=== PATIENT | male | born 1960 | race Caucasian/White ===

== ENCOUNTER 2016-12-14 09:41 | Observation (INO) | payer OTHER ==
[~2016-12-14] VITALS: Ht 182.9 cm; Wt 126.4 kg
[2016-12-14] VITALS (8 sets, daily range): BP systolic 123–146; BP diastolic 72–89
[~2016-12-14 09:41] MED LIST: ADULT LOW DOSE81 M1 PO; ADVIL200 MG PO; ALDACTONE25 MG PO; ALPRAZOLAM0.25 M2 PO; AMIODARONE HCL200 MG PO; ASPIR 8181 M1 PO; ASPIRIN81 M2 PO; ATIVAN0.5 MG PO; ATORVASTATIN CA20 MG PO; ATORVASTATIN CA40 MG PO; BENADRYL25 MG PO; BUPROPION HCL150 M2 PO; CORDARONE200 MG PO; COUMADIN1 MG PO; COUMADIN10 MG PO; COUMADIN2 MG PO; COUMADIN5 MG PO; COUMADIN6 MG PO; Cordarone, Pacerone PO; FLOMAX0.4 MG PO; FLONASE16 G1 BOTH NARES; FLOVENT 11120 INHALA IH; FUROSEMIDE; HYDROCHLOROTH12.5 M3 PO; HYDROCHLOROTHIA25 MG PO; IMDUR30 MG PO; K-DUR20 MEQ PO; KLOR-CON M2020 MEQ PO; LANSOPRAZOLE15 MG PO; LASIX20 MG PO; LASIX40 MG PO; LIPITOR20 MG PO; LIPITOR40 MG PO; LIPITOR80 MG PO; LISINOPRIL10 MG PO; LISINOPRIL2.5 MG PO; LITE COAT ASPI325 M1 PO; LOPRESSOR25 MG PO; LOPRESSOR50 MG PO; LOW DOSE ASPIRI81 M1 PO; METOPROLOL TART25 MG PO; METOPROLOL TART50 MG PO; MINOCYCLINE HC100 MG PO; NITROGLYCERIN1 EAC1 TD; NITROSTAT0.4 MG SL; OMEPRAZOLE40 M1 PO; PREVACID30 MG PO; PRILOSEC20 MG PO; PRINIVIL10 MG PO; PRINIVIL20 MG PO; RANEXA500 MG PO; SERTRALINE HCL25 MG PO; SPIRONOLACTONE25 MG PO; ST. JOSEPH ASPI81 MG PO; STOOL SOFTENER100 M1 PO; TAMSULOSIN HCL0.4 MG PO; WARFARIN SODIU7.5 MG PO; WARFARIN SODIUM1 MG PO; WARFARIN SODIUM4 MG PO; WARFARIN SODIUM6 MG PO; WELLBUTRIN PO; WELLBUTRIN SR200 MG PO; XANAX0.25 MG PO; XANAX0.5 MG PO; XANAX1 MG PO; ZYRTEC10 M3 PO
[2016-12-14 10:30] LABS: MCH 31.6 PG (29.0-34.0); MCHC 33.5 G/DL (30.0-36.0); MCV 94.3 FL (86-99); MEAN PLAT.VOLUME 10.3 uM^3 (9.0-12.4); PLATELET COUNT 166 K/uL (156-360); RBC DIS.WIDTH-CV 13.3 % (11.8-14.6); RBC DIS.WIDTH-SD 43.8 % (39-53); RED BLOOD COUNT 4.24 M/uL (4.00-5.50)
[2016-12-14 10:39] LABS: CHLORIDE 107 mEq/L (99-109); SODIUM 141 mEq/L (136-147)
[2016-12-14 10:40] LABS: MAGNESIUM 2.1 mg/dL (1.3-2.7)
[2016-12-14 10:41] LABS: GLUCOSE 101 mg/dL (70-99)
[2016-12-14 10:42] LABS: ANION GAP 7 MEQ/L (2-14)
[2016-12-14 10:45] LABS: GFR ESTIMATE (CALCULATED) > 59 mL/min/
[2016-12-14 10:46] LABS: UREA NITROGEN (BUN) 17 mg/dL (9-23)
[2016-12-14 10:52] LABS: TROP-I INTERPRETATION NEGATIVE; TROPONIN-I < 0.01 ng/mL (0.0-0.30)
[2016-12-14 10:54] LABS: INTER. NORMALIZED RATIO 2.6; PROTHROMBIN TIME 26.8 (9.2-11.2)
[2016-12-14] MEDS ORDERED: LIPITOR80 MG PO (12:50)
[2016-12-14] MEDS ORDERED: XANAX2 MG PO (12:51)
[2016-12-14] MEDS ORDERED: LISINOPRIL5 MG PO (12:52)
[2016-12-14] MEDS ORDERED: EPLERENONE25 MG PO (12:52)
[2016-12-14 18:32] LABS: TROP-I INTERPRETATION NEGATIVE; TROPONIN-I < 0.01 ng/mL (0.0-0.30)
[2016-12-15 00:54] VITALS: BP 128/77
[2016-12-15 01:20] LABS: TROP-I INTERPRETATION NEGATIVE; TROPONIN-I 0.02 ng/mL (0.0-0.30)
[2016-12-15 07:50] VITALS: BP 119/72
[2016-12-15 12:00] VITALS: BP 106/67
== END 2016-12-15 12:35 | disposition home or self-care (01) ==
LOC: EME → EDBD 09:41 → 5WEST 11:06 → EDOF 11:06 → 5WEST 13:08
PROVIDERS: Emergency Medicine; Hospitalist
DX: R07.9 Chest pain, unspecified (principal); I47.2 Ventricular tachycardia; Z95.810 Presence of automatic (implantable) cardiac defibrillator; I25.5 Ischemic cardiomyopathy; I11.0 Hypertensive heart disease with heart failure; I50.22 Chronic systolic (congestive) heart failure; I48.91 Unspecified atrial fibrillation; Z86.718 Personal history of other venous thrombosis and embolism; Z79.01 Long term (current) use of anticoagulants; F41.9 Anxiety disorder, unspecified; Z87.891 Personal history of nicotine dependence; Z88.0 Allergy status to penicillin
CPT/HCPCS: 71010; 80048; 83735; 83880; 84484; 85027; 85610; 93005; 93306; 99281; 99285; G0378

== ENCOUNTER 2016-12-25 21:58 | Observation (INO) | payer OTHER ==
[~2016-12-25] VITALS: Ht 182.9 cm; Wt 124.6 kg
[~2016-12-25 21:58] MED LIST changes: +EPLERENONE25 MG PO; +LISINOPRIL5 MG PO; +XANAX2 MG PO
[2016-12-25 22:30] LABS: HEMATOCRIT 40.1 % (38.0-50.0); MCH 32.1 PG (29.0-34.0); MCHC 34.4 G/DL (30.0-36.0); MCV 93.3 FL (86-99); MEAN PLAT.VOLUME 10.2 uM^3 (9.0-12.4); PLATELET COUNT 163 K/uL (156-360); RBC DIS.WIDTH-CV 13.7 % (11.8-14.6); RBC DIS.WIDTH-SD 45.1 % (39-53); WHITE BLOOD COUNT 5.3 K/uL (4.1-10.2)
[2016-12-25 22:41] LABS: CHLORIDE 108 mEq/L (99-109); POTASSIUM 4.2 mEq/L (3.7-5.4); SODIUM 139 mEq/L (136-147)
[2016-12-25 22:43] LABS: GLUCOSE 91 mg/dL (70-99)
[2016-12-25 22:44] LABS: ANION GAP 9 MEQ/L (2-14)
[2016-12-25 22:46] LABS: GFR ESTIMATE (CALCULATED) > 59 mL/min/
[2016-12-25 22:47] LABS: UREA NITROGEN (BUN) 16 mg/dL (9-23)
[2016-12-25 22:51] LABS: TROP-I INTERPRETATION NEGATIVE; TROPONIN-I < 0.01 ng/mL (0.0-0.30)
[2016-12-26] VITALS (8 sets, daily range): BP systolic 98–120; BP diastolic 59–76
[2016-12-26 01:40] LABS: INTER. NORMALIZED RATIO 2.3; PROTHROMBIN TIME 24.5 (9.2-11.2); PTT 35.8 (25-32)
[2016-12-26 04:50] LABS: MCH 31.8 PG (29.0-34.0); MCHC 33.8 G/DL (30.0-36.0); MCV 94.1 FL (86-99); MEAN PLAT.VOLUME 10.2 uM^3 (9.0-12.4); PLATELET COUNT 169 K/uL (156-360); RBC DIS.WIDTH-CV 13.8 % (11.8-14.6); RBC DIS.WIDTH-SD 44.9 % (39-53); RED BLOOD COUNT 4.25 M/uL (4.00-5.50); WHITE BLOOD COUNT 5.2 K/uL (4.1-10.2)
[2016-12-26 05:01] LABS: CHLORIDE 107 mEq/L (99-109); POTASSIUM 3.8 mEq/L (3.7-5.4); SODIUM 138 mEq/L (136-147)
[2016-12-26 05:03] LABS: GLUCOSE 108 mg/dL (70-99)
[2016-12-26 05:05] LABS: ANION GAP 6 MEQ/L (2-14); TOTAL BILIRUBIN 1.1 mg/dL (0.0-1.0)
[2016-12-26 05:07] LABS: ALKALINE PHOSPHATASE 55 IU/L (3-129); GFR ESTIMATE (CALCULATED) > 59 mL/min/
[2016-12-26 05:08] LABS: UREA NITROGEN (BUN) 16 mg/dL (9-23)
[2016-12-26 05:14] LABS: TROP-I INTERPRETATION NEGATIVE; TROPONIN-I < 0.01 ng/mL (0.0-0.30)
[2016-12-26 11:49] LABS: TROP-I INTERPRETATION NEGATIVE; TROPONIN-I < 0.01 ng/mL (0.0-0.30)
[2016-12-26 16:50] LABS: INTER. NORMALIZED RATIO 3.1; PROTHROMBIN TIME 32.8 (9.2-11.2)
[2016-12-27 03:45] VITALS: BP 101/58
[2016-12-27 07:01] LABS: EOSINOPHIL (%) 1.7 % (0-5); EOSINOPHIL COUNT 0.1 K/uL (0-0.3); HEMATOCRIT 39.7 % (38.0-50.0); LYMPHOCYTE COUNT 1.6 K/uL (1.0-2.8); MCH 30.5 PG (29.0-34.0); MCHC 32.2 G/DL (30.0-36.0); MCV 94.7 FL (86-99); MEAN PLAT.VOLUME 10.9 uM^3 (9.0-12.4); MONOCYTE (%) 9.4 % (3-12); MONOCYTE COUNT 0.6 K/uL (0-0.8); NEUTROPHIL (%) 61.8 % (45-76); NEUTROPHIL COUNT 3.6 K/uL (1.8-6.4); PLATELET COUNT 162 K/uL (156-360); RBC DIS.WIDTH-SD 48.3 % (39-53); RED BLOOD COUNT 4.19 M/uL (4.00-5.50); WHITE BLOOD COUNT 5.8 K/uL (4.1-10.2)
[2016-12-27 07:09] LABS: INTER. NORMALIZED RATIO 3.7
[2016-12-27 07:27] LABS: ANION GAP 7 MEQ/L (2-14); CHLORIDE 105 MEQ/L (99-109); GFR ESTIMATE (CALCULATED) > 59 mL/min/; GLUCOSE 91 mg/dL (70-99); POTASSIUM 4.1 MEQ/L (3.7-5.4); SAMPLE HEMOLYSIS CHECK 0; SAMPLE ICTERIC CHECK 0; SAMPLE LIPEMIA CHECK 0; SODIUM 137 MEQ/L (136-147); UREA NITROGEN (BUN) 16 mg/dL (9-23)
[2016-12-27 07:50] VITALS: BP 106/70
[2016-12-27] MEDS ORDERED: IMDUR30 MG PO (09:42)
== END 2016-12-27 11:50 | disposition home or self-care (01) ==
LOC: EME → EDBD 21:58 → EME 21:58 → EDOF 12-26 01:14 → 5WEST 12-26 01:14
PROVIDERS: Internal Medicine
DX: R07.89 Other chest pain (principal); I11.0 Hypertensive heart disease with heart failure; I50.22 Chronic systolic (congestive) heart failure; I47.2 Ventricular tachycardia; I25.5 Ischemic cardiomyopathy; E78.5 Hyperlipidemia, unspecified; I25.2 Old myocardial infarction; K21.9 Gastro-esophageal reflux disease without esophagitis; F32.9 Major depressive disorder, single episode, unspecified; F41.9 Anxiety disorder, unspecified; Z95.1 Presence of aortocoronary bypass graft; Z87.891 Personal history of nicotine dependence; Z79.01 Long term (current) use of anticoagulants; E66.9 Obesity, unspecified; Z68.37 Body mass index [BMI] 37.0-37.9, adult
CPT/HCPCS: 71020; 80048; 80053; 84484; 85025; 85027; 85610; 85730; 93005; 99281; 99285; G0378

== ENCOUNTER 2017-02-11 20:10 | Observation (INO) | payer OTHER ==
[~2017-02-11] VITALS: Ht 182.9 cm; Wt 128.2 kg
[2017-02-11 21:17] LABS: HEMATOCRIT 38.9 % (38.0-50.0); MCH 31.1 PG (29.0-34.0); MCHC 32.6 G/DL (30.0-36.0); MCV 95.3 FL (86-99); MEAN PLAT.VOLUME 9.4 uM^3 (9.0-12.4); PLATELET COUNT 170 K/uL (156-360); RBC DIS.WIDTH-CV 13.2 % (11.8-14.6); RBC DIS.WIDTH-SD 45.9 % (39-53); RED BLOOD COUNT 4.08 M/uL (4.00-5.50)
[2017-02-11 21:27] LABS: CHLORIDE 109 mEq/L (99-109); POTASSIUM 4.4 mEq/L (3.7-5.4); SODIUM 139 mEq/L (136-147)
[2017-02-11 21:29] LABS: GLUCOSE 98 mg/dL (70-99)
[2017-02-11 21:30] LABS: ANION GAP 7 MEQ/L (2-14)
[2017-02-11 21:33] LABS: GFR ESTIMATE (CALCULATED) > 59 mL/min/
[2017-02-11 21:34] LABS: UREA NITROGEN (BUN) 20 mg/dL (9-23)
[2017-02-11 21:41] LABS: TROP-I INTERPRETATION NEGATIVE; TROPONIN-I < 0.01 ng/mL (0.0-0.30)
[2017-02-11 22:28] LABS: INTER. NORMALIZED RATIO 2.6
[2017-02-11 22:34] LABS: TOTAL BILIRUBIN 1.2 mg/dL (0.0-1.0)
[2017-02-11 22:35] LABS: ALKALINE PHOSPHATASE 50 IU/L (3-129)
[2017-02-11 22:38] LABS: DIRECT BILIRUBIN 0.4 mg/dL (0.0-0.3)
[2017-02-11] MEDS ORDERED: K-DUR20 MEQ PO (22:41)
[2017-02-11 23:48] VITALS: BP 140/86
[2017-02-12 03:33] VITALS: BP 104/65
[2017-02-12 04:31] LABS: INTER. NORMALIZED RATIO 2.4; PROTHROMBIN TIME 25.6 (9.2-11.2)
[2017-02-12 04:41] LABS: TROP-I INTERPRETATION NEGATIVE; TROPONIN-I < 0.01 ng/mL (0.0-0.30)
[2017-02-12 08:11] VITALS: BP 118/74
[2017-02-12 11:06] LABS: Estimated Average Glucose 114 mg/dL (70-123); HEMOGLOBIN A1c (GLYCOHEMOGLOB) 5.6 % HGB (Below 5.7)
[2017-02-12 11:10] VITALS: BP 130/78
[2017-02-12 11:37] LABS: TROP-I INTERPRETATION NEGATIVE; TROPONIN-I 0.02 ng/mL (0.0-0.30)
[2017-02-12 11:38] LABS: ANION GAP 7 MEQ/L (2-14); CHLORIDE 101 MEQ/L (99-109); GFR ESTIMATE (CALCULATED) > 59 mL/min/; GLUCOSE 108 mg/dL (70-99); HDL CHOLESTEROL 24 MG/DL (Desirable>=40); LDL CHOLESTEROL 71 mg/dL (Desirable<100); NON-HDL CHOLESTEROL 94 mg/dL (Desirable<160); SAMPLE HEMOLYSIS CHECK 0; SAMPLE ICTERIC CHECK 0; SAMPLE LIPEMIA CHECK 0; SODIUM 137 MEQ/L (136-147); TOTAL CHOLESTEROL 118 mg/dL (Desirable<200); TRIGLYCERIDES 113 MG/DL (Normal: <150); UREA NITROGEN (BUN) 18 mg/dL (9-23)
[2017-02-12 15:09] VITALS: BP 111/67
== END 2017-02-12 16:43 | disposition home or self-care (01) ==
LOC: EME → EDBD 20:10 → EDOF 22:01 → 5WEST 22:01
PROVIDERS: Emergency Medicine; Physician Assistant Medical
DX: R07.2 Precordial pain (principal); I11.0 Hypertensive heart disease with heart failure; I50.23 Acute on chronic systolic (congestive) heart failure; I25.2 Old myocardial infarction; I25.10 Atherosclerotic heart disease of native coronary artery without angina pectoris; Z95.810 Presence of automatic (implantable) cardiac defibrillator; I25.5 Ischemic cardiomyopathy; E78.5 Hyperlipidemia, unspecified; E66.9 Obesity, unspecified; F32.9 Major depressive disorder, single episode, unspecified; I47.2 Ventricular tachycardia
CPT/HCPCS: 71020; 80048; 80061; 80076; 83036; 83735; 83880; 84484; 85027; 85610; 93005; 99281; 99285; G0378; J1940; J2270; J2405

== ENCOUNTER 2017-03-16 21:22 | Observation (INO) | payer OTHER ==
[~2017-03-16] VITALS: Ht 182.9 cm; Wt 126.3 kg
[2017-03-16 22:01] LABS: EOSINOPHIL (%) 3.5 % (0-5); EOSINOPHIL COUNT 0.2 K/uL (0-0.3); HEMATOCRIT 39.3 % (38.0-50.0); IMMATURE GRANULOCYTE (%) 0.3 % (0.0-0.7); INSTRUMENT ABS NEUTROPHIL CT 3.3 K/uL; MCH 31.1 PG (29.0-34.0); MCHC 33.1 G/DL (30.0-36.0); MEAN PLAT.VOLUME 10.4 uM^3 (9.0-12.4); MONOCYTE (%) 9.8 % (3-12); MONOCYTE COUNT 0.6 K/uL (0-0.8); NEUTROPHIL (%) 53.2 % (45-76); NEUTROPHIL COUNT 3.3 K/uL (1.8-6.4); PLATELET COUNT 165 K/uL (156-360); RBC DIS.WIDTH-CV 13.2 % (11.8-14.6); RBC DIS.WIDTH-SD 45.5 % (39-53); RED BLOOD COUNT 4.18 M/uL (4.00-5.50); WHITE BLOOD COUNT 6.2 K/uL (4.1-10.2)
[2017-03-16 22:17] LABS: CHLORIDE 107 mEq/L (99-109); POTASSIUM 3.7 mEq/L (3.7-5.4); SODIUM 139 mEq/L (136-147)
[2017-03-16 22:19] LABS: GLUCOSE 98 mg/dL (70-99)
[2017-03-16 22:20] LABS: INTER. NORMALIZED RATIO 2.9; PROTHROMBIN TIME 30.1 (9.2-11.2); PTT 38.7 (25-32)
[2017-03-16 22:21] LABS: ANION GAP 9 MEQ/L (2-14)
[2017-03-16 22:23] LABS: GFR ESTIMATE (CALCULATED) > 59 mL/min/
[2017-03-16 22:24] LABS: TROP-I INTERPRETATION NEGATIVE; TROPONIN-I < 0.01 ng/mL (0.0-0.30)
[2017-03-16 22:24] LABS: UREA NITROGEN (BUN) 20 mg/dL (9-23)
[2017-03-17 02:17] VITALS: BP 127/76
[2017-03-17 04:00] VITALS: BP 116/68
[2017-03-17 05:40] LABS: TROP-I INTERPRETATION NEGATIVE; TROPONIN-I < 0.01 ng/mL (0.0-0.30)
[2017-03-17 05:44] LABS: INTER. NORMALIZED RATIO 2.9; PROTHROMBIN TIME 30.5 (9.2-11.2)
[2017-03-17 08:00] VITALS: BP 112/71
[2017-03-17 10:55] LABS: TROP-I INTERPRETATION NEGATIVE; TROPONIN-I < 0.01 ng/mL (0.0-0.30)
[2017-03-17 11:16] VITALS: BP 127/78
== END 2017-03-17 14:11 | disposition home or self-care (01) ==
LOC: EME → EDBD 21:22 → EME 21:22 → EDOF 03-17 00:27 → 5WEST 03-17 01:57
PROVIDERS: Emergency Medicine; Hospitalist; Physician Assistant Medical
DX: R07.89 Other chest pain (principal); I25.5 Ischemic cardiomyopathy; I47.1 Supraventricular tachycardia; I47.2 Ventricular tachycardia; I51.3 Intracardiac thrombosis, not elsewhere classified; I11.0 Hypertensive heart disease with heart failure; I50.22 Chronic systolic (congestive) heart failure; I25.10 Atherosclerotic heart disease of native coronary artery without angina pectoris; I25.2 Old myocardial infarction; E78.5 Hyperlipidemia, unspecified; K21.9 Gastro-esophageal reflux disease without esophagitis; E66.9 Obesity, unspecified; Z68.37 Body mass index [BMI] 37.0-37.9, adult; Z95.810 Presence of automatic (implantable) cardiac defibrillator; Z79.01 Long term (current) use of anticoagulants; Z87.891 Personal history of nicotine dependence; Z95.1 Presence of aortocoronary bypass graft
CPT/HCPCS: 71010; 80048; 83735; 84484; 85025; 85610; 85730; 93005; 99281; 99285; G0378

== ENCOUNTER 2017-04-04 07:01 | Day surgery (SDC) | payer OTHER ==
[~2017-04-04] VITALS: Ht 182.9 cm; Wt 125.0 kg
== END 2017-04-04 11:02 | disposition home or self-care (01) ==
LOC: CATH 07:01
DX: Z45.02 Encounter for adjustment and management of automatic implantable cardiac defibrillator (principal); I47.1 Supraventricular tachycardia; I25.5 Ischemic cardiomyopathy; I11.0 Hypertensive heart disease with heart failure; I50.9 Heart failure, unspecified; I25.118 Atherosclerotic heart disease of native coronary artery with other forms of angina pectoris; E78.5 Hyperlipidemia, unspecified; I51.3 Intracardiac thrombosis, not elsewhere classified; F41.9 Anxiety disorder, unspecified; I25.2 Old myocardial infarction; Z88.0 Allergy status to penicillin; Z79.82 Long term (current) use of aspirin; Z79.01 Long term (current) use of anticoagulants; Z95.5 Presence of coronary angioplasty implant and graft
CPT/HCPCS: 93005; C1721; J1200; J2250; J3010; J3370; J7050; S0020

== ENCOUNTER 2017-05-16 08:18 | Observation (INO) | payer OTHER ==
[~2017-05-16] VITALS: Ht 182.9 cm; Wt 127.5 kg
[2017-05-16 09:06] LABS: EOSINOPHIL (%) 2.2 % (0-5); EOSINOPHIL COUNT 0.1 K/uL (0-0.3); HEMATOCRIT 40.1 % (38.0-50.0); IMMATURE GRANULOCYTE (%) 0.4 % (0.0-0.7); INSTRUMENT ABS NEUTROPHIL CT 2.9 K/uL; LYMPHOCYTE COUNT 1.1 K/uL (1.0-2.8); MCH 30.4 PG (29.0-34.0); MCHC 32.9 G/DL (30.0-36.0); MCV 92.4 FL (86-99); MEAN PLAT.VOLUME 11.7 uM^3 (9.0-12.4); MONOCYTE (%) 9.5 % (3-12); MONOCYTE COUNT 0.4 K/uL (0-0.8); NEUTROPHIL COUNT 2.9 K/uL (1.8-6.4); PLATELET COUNT 181 K/uL (156-360); RBC DIS.WIDTH-CV 13.1 % (11.8-14.6); RBC DIS.WIDTH-SD 44.3 % (39-53); RED BLOOD COUNT 4.34 M/uL (4.00-5.50); WHITE BLOOD COUNT 4.6 K/uL (4.1-10.2)
[2017-05-16 09:39] LABS: TROP-I INTERPRETATION NEGATIVE; TROPONIN-I < 0.01 ng/mL (0.0-0.30)
[2017-05-16 09:53] LABS: CHLORIDE 108 mEq/L (99-109); GLUCOSE 103 mg/dL (70-99); MAGNESIUM 2.1 mg/dL (1.3-2.7); POTASSIUM 4.7 mEq/L (3.7-5.4); SODIUM 140 mEq/L (136-147)
[2017-05-16 09:54] LABS: ANION GAP 7 MEQ/L (2-14)
[2017-05-16 09:55] LABS: TOTAL BILIRUBIN 0.7 mg/dL (0.0-1.0)
[2017-05-16 09:56] LABS: ALKALINE PHOSPHATASE 68 IU/L (3-129); GFR ESTIMATE (CALCULATED) > 59 mL/min/
[2017-05-16 09:57] LABS: UREA NITROGEN (BUN) 19 mg/dL (9-23)
[2017-05-16 09:59] LABS: INTER. NORMALIZED RATIO 2.4; PROTHROMBIN TIME 25.2 (9.2-11.2)
[2017-05-16 14:22] VITALS: BP 132/81
[2017-05-16 14:50] VITALS: BP 126/70
[2017-05-16 15:48] VITALS: BP 122/71
[2017-05-16 16:50] LABS: TROP-I INTERPRETATION NEGATIVE; TROPONIN-I 0.02 ng/mL (0.0-0.30)
[2017-05-16 20:00] VITALS: BP 123/73
[2017-05-16 22:04] LABS: TROP-I INTERPRETATION NEGATIVE; TROPONIN-I 0.02 ng/mL (0.0-0.30)
[2017-05-16 23:36] VITALS: BP 121/70
[2017-05-17 03:06] VITALS: BP 106/68
[2017-05-17 05:20] LABS: HEMATOCRIT 39.3 % (38.0-50.0); MCH 30.3 PG (29.0-34.0); MCHC 32.1 G/DL (30.0-36.0); MCV 94.5 FL (86-99); MEAN PLAT.VOLUME 10.6 uM^3 (9.0-12.4); PLATELET COUNT 160 K/uL (156-360); RBC DIS.WIDTH-CV 13.4 % (11.8-14.6); RBC DIS.WIDTH-SD 46.2 % (39-53); RED BLOOD COUNT 4.16 M/uL (4.00-5.50); WHITE BLOOD COUNT 6.7 K/uL (4.1-10.2)
[2017-05-17 05:45] LABS: ANION GAP 8 MEQ/L (2-14); CHLORIDE 106 MEQ/L (99-109); GFR ESTIMATE (CALCULATED) > 59 mL/min/; GLUCOSE 94 mg/dL (70-99); POTASSIUM 4.6 MEQ/L (3.7-5.4); SAMPLE HEMOLYSIS CHECK 0; SAMPLE ICTERIC CHECK 0; SAMPLE LIPEMIA CHECK 0; SODIUM 140 MEQ/L (136-147); UREA NITROGEN (BUN) 20 mg/dL (9-23)
[2017-05-17 06:30] LABS: INTER. NORMALIZED RATIO 1.2
[2017-05-17 07:20] VITALS: BP 121/72
[2017-05-17] MEDS ORDERED: CORDARONE200 MG PO (10:10)
== END 2017-05-17 10:58 | disposition home or self-care (01) ==
LOC: EME → EDBD 08:18 → EME 08:18 → 5WEST 12:33 → EDOF 12:33 → 5WEST 14:10
PROVIDERS: Emergency Medicine; Hospitalist
DX: I47.2 Ventricular tachycardia (principal); Z95.810 Presence of automatic (implantable) cardiac defibrillator; I25.10 Atherosclerotic heart disease of native coronary artery without angina pectoris; I11.0 Hypertensive heart disease with heart failure; I50.22 Chronic systolic (congestive) heart failure; I25.2 Old myocardial infarction; I25.5 Ischemic cardiomyopathy; E78.5 Hyperlipidemia, unspecified; Z86.718 Personal history of other venous thrombosis and embolism; Z79.01 Long term (current) use of anticoagulants; E66.9 Obesity, unspecified; Z68.38 Body mass index [BMI] 38.0-38.9, adult; Z87.891 Personal history of nicotine dependence; Z82.49 Family history of ischemic heart disease and other diseases of the circulatory system; Z98.890 Other specified postprocedural states; Z88.0 Allergy status to penicillin
CPT/HCPCS: 71020; 80048; 80053; 83735; 84484; 85025; 85027; 85610; 93005; 94799; G0378

== ENCOUNTER 2017-06-08 22:02 | Observation (INO) | payer OTHER ==
[~2017-06-08] VITALS: Ht 182.9 cm; Wt 127.6 kg
[~2017-06-08 22:02] MED LIST changes: -LISINOPRIL5 MG PO
[2017-06-08 22:41] LABS: EOSINOPHIL (%) 3.5 % (0-5); EOSINOPHIL COUNT 0.2 K/uL (0-0.3); HEMATOCRIT 38.9 % (38.0-50.0); IMMATURE GRANULOCYTE (%) 0.2 % (0.0-0.7); INSTRUMENT ABS NEUTROPHIL CT 2.9 K/uL; LYMPHOCYTE COUNT 1.7 K/uL (1.0-2.8); MCH 30.5 PG (29.0-34.0); MCHC 32.6 G/DL (30.0-36.0); MCV 93.5 FL (86-99); MEAN PLAT.VOLUME 10.4 uM^3 (9.0-12.4); MONOCYTE (%) 9.8 % (3-12); MONOCYTE COUNT 0.5 K/uL (0-0.8); NEUTROPHIL (%) 54.4 % (45-76); NEUTROPHIL COUNT 2.9 K/uL (1.8-6.4); PLATELET COUNT 163 K/uL (156-360); RBC DIS.WIDTH-CV 13.6 % (11.8-14.6); RBC DIS.WIDTH-SD 46.4 % (39-53); RED BLOOD COUNT 4.16 M/uL (4.00-5.50); WHITE BLOOD COUNT 5.4 K/uL (4.1-10.2)
[2017-06-08 22:51] LABS: CHLORIDE 107 mEq/L (99-109); SODIUM 140 mEq/L (136-147)
[2017-06-08 22:53] LABS: GLUCOSE 78 mg/dL (70-99)
[2017-06-08 22:54] LABS: ANION GAP 8 MEQ/L (2-14)
[2017-06-08 22:57] LABS: GFR ESTIMATE (CALCULATED) > 59 mL/min/; UREA NITROGEN (BUN) 14 mg/dL (9-23)
[2017-06-08 23:04] LABS: TROP-I INTERPRETATION NEGATIVE; TROPONIN-I < 0.01 ng/mL (0.0-0.30)
[2017-06-08] MEDS ORDERED: AMIODARONE HCL200 MG PO (23:34)
[2017-06-08] MEDS ORDERED: TYLENOL EXTRA500 MG PO (23:36)
[2017-06-09 01:10] VITALS: BP 133/77
[2017-06-09 02:18] LABS: PROTHROMBIN TIME 52.4 SEC (10.2-12.9)
[2017-06-09 02:22] LABS: INTER. NORMALIZED RATIO 4.5
[2017-06-09 04:05] VITALS: BP 114/66
[2017-06-09 06:34] LABS: TROP-I INTERPRETATION NEGATIVE; TROPONIN-I < 0.01 ng/mL (0.0-0.30)
[2017-06-09 07:08] VITALS: BP 128/76
[2017-06-09 12:12] VITALS: BP 125/78
[2017-06-09 12:46] LABS: INTER. NORMALIZED RATIO 4.1; PROTHROMBIN TIME 47.6 SEC (10.2-12.9)
[2017-06-09 13:29] LABS: TROP-I INTERPRETATION NEGATIVE; TROPONIN-I < 0.01 ng/mL (0.0-0.30)
== END 2017-06-09 15:10 | disposition home or self-care (01) ==
LOC: EME 22:02 → EDOF 23:57 → 5WEST 23:57 → EDOF 23:57 → ENPENDDIS 06-09 → ENRESERV 06-09 00:02 → 5WEST 06-09 01:10
PROVIDERS: Emergency Medicine; Hospitalist; Nurse Practitioner Family
DX: R07.9 Chest pain, unspecified (principal); I25.5 Ischemic cardiomyopathy; I47.2 Ventricular tachycardia; I25.2 Old myocardial infarction; Z79.01 Long term (current) use of anticoagulants; I11.0 Hypertensive heart disease with heart failure; I50.22 Chronic systolic (congestive) heart failure; I25.10 Atherosclerotic heart disease of native coronary artery without angina pectoris; Z95.828 Presence of other vascular implants and grafts; Z95.810 Presence of automatic (implantable) cardiac defibrillator; E78.5 Hyperlipidemia, unspecified; E66.9 Obesity, unspecified; Z87.891 Personal history of nicotine dependence; Z88.0 Allergy status to penicillin
CPT/HCPCS: 71010; 80048; 83880; 84484; 85025; 85610; 93005; 99281; 99285; G0378

== ENCOUNTER 2017-06-30 08:53 | Day surgery (SDC) | payer OTHER ==
[~2017-06-30] VITALS: Ht 182.9 cm; Wt 127.0 kg
[~2017-06-30 08:53] MED LIST changes: +TYLENOL EXTRA500 MG PO
[2017-06-30 09:30] LABS: INTER. NORMALIZED RATIO 2.5
== END 2017-06-30 09:30 | disposition home or self-care (01) ==
LOC: CATH 08:53
PROVIDERS: Internal Medicine Interventional Cardiology
DX: Z53.9 Procedure and treatment not carried out, unspecified reason (principal)
CPT/HCPCS: 85610

== ENCOUNTER 2017-07-05 15:56 | Inpatient (IN) | payer OTHER ==
[~2017-07-05] VITALS: Ht 182.9 cm; Wt 127.9 kg
[2017-07-05 16:14] LABS: HEMATOCRIT 40.3 % (38.0-50.0); MCH 30.9 PG (29.0-34.0); MCHC 32.5 G/DL (30.0-36.0); MEAN PLAT.VOLUME 10.1 uM^3 (9.0-12.4); PLATELET COUNT 148 K/uL (156-360); RBC DIS.WIDTH-CV 14.1 % (11.8-14.6); RBC DIS.WIDTH-SD 48.7 % (39-53); RED BLOOD COUNT 4.24 M/uL (4.00-5.50); WHITE BLOOD COUNT 5.3 K/uL (4.1-10.2)
[2017-07-05 16:23] LABS: CHLORIDE 107 mEq/L (99-109); POTASSIUM 4.4 mEq/L (3.7-5.4); SODIUM 140 mEq/L (136-147)
[2017-07-05 16:25] LABS: GLUCOSE 93 mg/dL (70-99)
[2017-07-05 16:26] LABS: ANION GAP 8 MEQ/L (2-14)
[2017-07-05 16:28] LABS: GFR ESTIMATE (CALCULATED) > 59 mL/min/
[2017-07-05 16:29] LABS: UREA NITROGEN (BUN) 15 mg/dL (9-23)
[2017-07-05 16:35] LABS: TROP-I INTERPRETATION NEGATIVE; TROPONIN-I 0.01 ng/mL (0.0-0.30)
[2017-07-05 17:37] LABS: INTER. NORMALIZED RATIO 1.1
[2017-07-05 18:15] VITALS: BP 138/83
[2017-07-05 19:13] LABS: MAGNESIUM 2.2 mg/dL (1.3-2.7)
[2017-07-05 19:51] VITALS: BP 115/68
[2017-07-05 20:00] VITALS: BP 109/61
[2017-07-05 23:44] LABS: TROP-I INTERPRETATION NEGATIVE; TROPONIN-I 0.03 ng/mL (0.0-0.30)
[2017-07-06 00:53] VITALS: BP 93/54
[2017-07-06 04:09] VITALS: BP 112/68
[2017-07-06 05:58] LABS: INTER. NORMALIZED RATIO 1.2; PROTHROMBIN TIME 12.9 SEC (10.2-12.9)
[2017-07-06 06:23] LABS: TROP-I INTERPRETATION NEGATIVE; TROPONIN-I < 0.01 ng/mL (0.0-0.30)
[2017-07-06 07:50] VITALS: BP 111/65
[2017-07-06 12:05] VITALS: BP 124/75
[2017-07-06 21:15] VITALS: BP 126/76
[2017-07-06 22:35] VITALS: BP 116/70
[2017-07-07 00:15] VITALS: BP 114/69
[2017-07-07 05:15] LABS: INTER. NORMALIZED RATIO 1.2; PROTHROMBIN TIME 13.4 SEC (10.2-12.9)
[2017-07-07 05:32] VITALS: BP 124/74
[2017-07-07 07:42] VITALS: BP 121/81
[2017-07-07] MEDS ORDERED: CLOPIDOGREL75 MG PO (10:56)
[2017-07-07 11:41] VITALS: BP 127/76
== END 2017-07-07 11:44 | disposition home or self-care (01) | DRG 247 ==
LOC: EME 15:56 → EDOF 17:08 → 5WEST 17:08 → ENRESERV 17:24 → 5WEST 18:16 → ENRESERV 07-06 10:33 → 4EAST 07-06 21:15
PROVIDERS: Emergency Medicine; Internal Medicine
DX: I25.110 Atherosclerotic heart disease of native coronary artery with unstable angina pectoris (principal); I11.0 Hypertensive heart disease with heart failure; I50.22 Chronic systolic (congestive) heart failure; I25.5 Ischemic cardiomyopathy; E78.5 Hyperlipidemia, unspecified; F32.9 Major depressive disorder, single episode, unspecified; F41.9 Anxiety disorder, unspecified; E66.9 Obesity, unspecified; Z68.38 Body mass index [BMI] 38.0-38.9, adult; I25.2 Old myocardial infarction; Z79.01 Long term (current) use of anticoagulants; Z79.82 Long term (current) use of aspirin; Z86.79 Personal history of other diseases of the circulatory system; Z95.1 Presence of aortocoronary bypass graft; Z95.810 Presence of automatic (implantable) cardiac defibrillator; Z87.891 Personal history of nicotine dependence
CPT/HCPCS: 36415; 71010; 80048; 83735; 83880; 84484; 85027; 85347; 85610; 93005; 99281; 99284; C1725; C1769; C1874; C1887; G0378; J0153; J1644; J1650; J2250; J2405; J3010; J7040; J7050

== ENCOUNTER 2017-09-27 18:33 | Emergency (ER) | payer OTHER ==
[~2017-09-27] VITALS: Ht 182.9 cm; Wt 125.0 kg
[~2017-09-27 18:33] MED LIST changes: +CLOPIDOGREL75 MG PO; +LAMICTAL25 MG PO; +PLAVIX75 MG PO
[2017-09-27 19:14] LABS: HEMATOCRIT 38.2 % (38.0-50.0); MCH 31.1 PG (29.0-34.0); MCHC 32.2 G/DL (30.0-36.0); MCV 96.5 FL (86-99); MEAN PLAT.VOLUME 9.9 uM^3 (9.0-12.4); PLATELET COUNT 169 K/uL (156-360); RBC DIS.WIDTH-CV 13.4 % (11.8-14.6); RBC DIS.WIDTH-SD 47.8 % (39-53); RED BLOOD COUNT 3.96 M/uL (4.00-5.50); WHITE BLOOD COUNT 4.8 K/uL (4.1-10.2)
[2017-09-27 19:28] LABS: CHLORIDE 107 mEq/L (99-109); POTASSIUM 4.5 mEq/L (3.7-5.4); SODIUM 140 mEq/L (136-147)
[2017-09-27 19:29] LABS: GLUCOSE 103 mg/dL (70-99)
[2017-09-27 19:31] LABS: ANION GAP 8 MEQ/L (2-14)
[2017-09-27 19:33] LABS: GFR ESTIMATE (CALCULATED) > 59 mL/min/
[2017-09-27 19:34] LABS: UREA NITROGEN (BUN) 21 mg/dL (9-23)
[2017-09-27 19:36] LABS: TROP-I INTERPRETATION NEGATIVE; TROPONIN-I < 0.01 ng/mL (0.0-0.30)
[2017-09-27 22:36] LABS: TROP-I INTERPRETATION NEGATIVE; TROPONIN-I < 0.01 ng/mL (0.0-0.30)
[2017-09-28 00:43] VITALS: BP 126/78
== END 2017-09-28 00:42 | disposition home or self-care (01) ==
LOC: EME 18:33
PROVIDERS: Emergency Medicine
DX: R07.9 Chest pain, unspecified (principal); I11.0 Hypertensive heart disease with heart failure; I50.9 Heart failure, unspecified; E78.5 Hyperlipidemia, unspecified; I25.2 Old myocardial infarction; Z95.810 Presence of automatic (implantable) cardiac defibrillator; Z95.1 Presence of aortocoronary bypass graft; Z79.01 Long term (current) use of anticoagulants; Z79.82 Long term (current) use of aspirin; Z98.890 Other specified postprocedural states; K21.9 Gastro-esophageal reflux disease without esophagitis; F41.9 Anxiety disorder, unspecified; Z87.891 Personal history of nicotine dependence; Z88.0 Allergy status to penicillin
CPT/HCPCS: 71020; 80048; 84484; 85027; 93005; 99281; 99285

== ENCOUNTER 2018-02-01 15:51 | Emergency (ER) | payer OTHER ==
[~2018-02-01] VITALS: Ht 182.9 cm; Wt 130.6 kg
[2018-02-01 16:59] LABS: BASOPHIL (%) 0.6 % (0-1); EOSINOPHIL (%) 3.3 % (0-5); EOSINOPHIL COUNT 0.2 K/uL (0-0.3); HEMATOCRIT 40.7 % (38.0-50.0); HEMOGLOBIN 13.3 G/DL (12.5-16.6); IMMATURE GRANULOCYTE (%) 0.2 % (0.0-0.7); LYMPHOCYTE (%) 29.7 % (15-42); LYMPHOCYTE COUNT 1.5 K/uL (1.0-2.8); MCH 31.4 PG (29.0-34.0); MCHC 32.7 G/DL (30.0-36.0); MONOCYTE (%) 9.4 % (3-12); MONOCYTE COUNT 0.5 K/uL (0-0.8); NEUTROPHIL (%) 56.8 % (45-76); NEUTROPHIL COUNT 2.8 K/uL (1.8-6.4); PLATELET COUNT 169 K/uL (156-360); RBC DIS.WIDTH-CV 14.2 % (11.8-14.6); RBC DIS.WIDTH-SD 50.4 % (39-53); RED BLOOD COUNT 4.24 M/uL (4.00-5.50); WHITE BLOOD COUNT 4.9 K/uL (4.1-10.2)
[2018-02-01 17:07] LABS: ALBUMIN 3.9 g/dL (3.2-4.8)
[2018-02-01 17:08] LABS: CHLORIDE 109 mEq/L (99-109); POTASSIUM 4.7 mEq/L (3.7-5.4); SODIUM 142 mEq/L (136-147)
[2018-02-01 17:10] LABS: GLUCOSE 93 mg/dL (70-99); TOTAL PROTEIN 6.9 g/dL (6.4-8.3)
[2018-02-01 17:12] LABS: TOTAL BILIRUBIN 0.6 mg/dL (0.0-1.0)
[2018-02-01 17:13] LABS: ALKALINE PHOSPHATASE 60 IU/L (3-129)
[2018-02-01 17:14] LABS: CREATININE 1.2 mg/dL (0.6-1.3); GFR ESTIMATE (CALCULATED) > 59 mL/min/ (58.99-99999)
[2018-02-01 17:15] LABS: AST (GOT) 19 IU/L (2-34); UREA NITROGEN (BUN) 20 mg/dL (9-23)
[2018-02-01 17:16] LABS: ALT (GPT) 26 IU/L (3-49)
[2018-02-01 17:17] LABS: LIPASE 23 U/L (1.0-51.0)
[2018-02-01 18:57] LABS: APPEARANCE CLOUDY ((CLEAR)); BILIRUBIN NEGATIVE; BLOOD NEGATIVE; COLOR YELLOW ((YELLOW)); GLUCOSE (STRIP) NEGATIVE; KETONES NEGATIVE; LEUKOCYTES NEGATIVE; NITRITE NEGATIVE; PROTEIN (STRIP) NEGATIVE; SPECIFIC GRAVITY 1.019 (1.000-1.030); UROBILINOGEN 0.2 MG/DL (0.2-1.0)
[2018-02-01] MEDS ORDERED: PERCOCET 5/31 TABLET PO (18:58)
[2018-02-01 19:05] LABS: BACTERIA RARE /HPF; EPITHELIAL CELLS RARE /HPF; MUCUS TRACE /LPF; RED BLOOD CELLS 0-5 /HPF (0-5); UCUL ADDED? NO; WHITE BLOOD CELLS 0-5 /HPF (0-5)
[2018-02-01 19:52] VITALS: BP 124/76
== END 2018-02-01 19:56 | disposition home or self-care (01) ==
LOC: EME → EDBD 15:51 → EME 19:56
PROVIDERS: Emergency Medicine
DX: K80.20 Calculus of gallbladder without cholecystitis without obstruction (principal); I11.0 Hypertensive heart disease with heart failure; I50.9 Heart failure, unspecified; E78.5 Hyperlipidemia, unspecified; K21.9 Gastro-esophageal reflux disease without esophagitis; I25.2 Old myocardial infarction; F41.9 Anxiety disorder, unspecified; Z79.82 Long term (current) use of aspirin; Z79.01 Long term (current) use of anticoagulants; Z79.02 Long term (current) use of antithrombotics/antiplatelets; Z95.810 Presence of automatic (implantable) cardiac defibrillator; Z95.1 Presence of aortocoronary bypass graft; Z87.891 Personal history of nicotine dependence; Z98.890 Other specified postprocedural states; Z85.9 Personal history of malignant neoplasm, unspecified; Z88.0 Allergy status to penicillin
CPT/HCPCS: 76705; 80053; 81003; 83690; 85025; 99281; 99285; J2405; J3010; J7030

== ENCOUNTER 2018-02-05 04:04 | Observation (INO) | payer OTHER ==
[~2018-02-05] VITALS: Ht 175.3 cm; Wt 130.7 kg
[~2018-02-05 04:04] MED LIST changes: +PERCOCET 5/31 TABLET PO
[2018-02-05 04:47] LABS: HEMATOCRIT 40.8 % (38.0-50.0); HEMOGLOBIN 13.4 G/DL (12.5-16.6); MCH 31.3 PG (29.0-34.0); MCHC 32.8 G/DL (30.0-36.0); MCV 95.3 FL (86-99); PLATELET COUNT 167 K/uL (156-360); RBC DIS.WIDTH-CV 13.7 % (11.8-14.6); RBC DIS.WIDTH-SD 48.3 % (39-53); RED BLOOD COUNT 4.28 M/uL (4.00-5.50); WHITE BLOOD COUNT 4.5 K/uL (4.1-10.2)
[2018-02-05 04:54] LABS: CHLORIDE 109 mEq/L (99-109); POTASSIUM 4.3 mEq/L (3.7-5.4); SODIUM 142 mEq/L (136-147)
[2018-02-05 04:56] LABS: GLUCOSE 92 mg/dL (70-99)
[2018-02-05 05:00] LABS: CREATININE 1.1 mg/dL (0.6-1.3); GFR ESTIMATE (CALCULATED) > 59 mL/min/ (58.99-99999)
[2018-02-05 05:01] LABS: UREA NITROGEN (BUN) 16 mg/dL (9-23)
[2018-02-05 05:09] LABS: TROP-I INTERPRETATION NEGATIVE; TROPONIN-I 0.01 ng/mL (0.0-0.30)
[2018-02-05 05:31] LABS: ALBUMIN 3.7 g/dL (3.2-4.8)
[2018-02-05 05:34] LABS: TOTAL PROTEIN 6.6 g/dL (6.4-8.3)
[2018-02-05 05:37] LABS: ALKALINE PHOSPHATASE 62 IU/L (3-129)
[2018-02-05 05:40] LABS: ALT (GPT) 25 IU/L (3-49); AST (GOT) 20 IU/L (2-34)
[2018-02-05 05:55] LABS: TOTAL BILIRUBIN 0.4 mg/dL (0.0-1.0)
[2018-02-05 07:29] VITALS: BP 133/81
[2018-02-05 07:32] LABS: INTER. NORMALIZED RATIO 2.8
[2018-02-05 11:40] VITALS: BP 151/77
[2018-02-05 14:37] LABS: APPEARANCE CLEAR ((CLEAR)); BILIRUBIN NEGATIVE; BLOOD NEGATIVE; COLOR STRAW ((YELLOW)); GLUCOSE (STRIP) NEGATIVE; KETONES NEGATIVE; LEUKOCYTES NEGATIVE; NITRITE NEGATIVE; PROTEIN (STRIP) NEGATIVE; SPECIFIC GRAVITY 1.004 (1.000-1.030); UCUL ADDED? NO; UROBILINOGEN 0.2 MG/DL (0.2-1.0)
[2018-02-05 15:13] VITALS: BP 124/67
[2018-02-05 18:00] VITALS: BP 106/64
[2018-02-05 18:20] LABS: TROP-I INTERPRETATION NEGATIVE; TROPONIN-I 0.01 ng/mL (0.0-0.30)
[2018-02-05 23:10] LABS: TROP-I INTERPRETATION NEGATIVE; TROPONIN-I < 0.01 ng/mL (0.0-0.30)
[2018-02-05 23:13] VITALS: BP 108/62
[2018-02-06 04:51] VITALS: BP 113/78
[2018-02-06 05:57] LABS: INTER. NORMALIZED RATIO 2.7
[2018-02-06 07:45] VITALS: BP 126/78
[2018-02-06 08:09] LABS: ALBUMIN 3.5 G/DL (3.2-4.8); ALKALINE PHOSPHATASE 49 IU/L (3-129); ALT (GPT) 20 IU/L (3-49); AST (GOT) 15 IU/L (2-34); CHLORIDE 107 MEQ/L (99-109); CREATININE 1.2 MG/DL (0.6-1.3); GFR ESTIMATE (CALCULATED) > 59 mL/min/ (58.99-99999); GLUCOSE 83 mg/dL (70-99); SODIUM 141 MEQ/L (136-147); TOTAL BILIRUBIN 0.6 MG/DL (0.0-1.0); TOTAL PROTEIN 6.4 G/DL (6.4-8.3); UREA NITROGEN (BUN) 17 mg/dL (9-23)
[2018-02-06] MEDS ORDERED: TAMSULOSIN HCL0.4 MG PO (10:12)
[2018-02-06] MEDS ORDERED: CYCLOBENZAPRINE10 MG PO (10:17)
[2018-02-06] MEDS ORDERED: OMEPRAZOLE40 M1 PO (11:15)
[2018-02-06 11:38] VITALS: BP 98/65
[2018-02-06 11:59] LABS: TROP-I INTERPRETATION NEGATIVE; TROPONIN-I < 0.01 ng/mL (0.0-0.30)
[2018-02-06] MEDS ORDERED: COUMADIN2 MG PO ×2 (12:02→12:04)
== END 2018-02-06 14:44 | disposition home or self-care (01) ==
LOC: EME 04:04 → 5WEST 05:29 → EDOF 05:29 → ENRESERV 05:30 → 5WEST 07:20 → ENRESERV 02-06 07:40 → CANRESERV 02-06 07:40 → 5WEST 02-06 10:11
PROVIDERS: Hospitalist; Internal Medicine
DX: R07.9 Chest pain, unspecified (principal); N20.0 Calculus of kidney; R33.9 Retention of urine, unspecified; R93.3 Abnormal findings on diagnostic imaging of other parts of digestive tract; Z86.718 Personal history of other venous thrombosis and embolism; Z79.01 Long term (current) use of anticoagulants; I25.5 Ischemic cardiomyopathy; I25.10 Atherosclerotic heart disease of native coronary artery without angina pectoris; Z95.5 Presence of coronary angioplasty implant and graft; I11.0 Hypertensive heart disease with heart failure; I50.22 Chronic systolic (congestive) heart failure; N28.1 Cyst of kidney, acquired; I25.2 Old myocardial infarction; I25.3 Aneurysm of heart; Z95.810 Presence of automatic (implantable) cardiac defibrillator; Z98.890 Other specified postprocedural states; E78.5 Hyperlipidemia, unspecified; Z87.891 Personal history of nicotine dependence; Z79.82 Long term (current) use of aspirin; Z88.0 Allergy status to penicillin
CPT/HCPCS: 71046; 76770; 80048; 80053; 81003; 84484; 85027; 85610; 93005; 99281; 99285; G0378

== ENCOUNTER 2018-02-12 20:34 | Observation (INO) | payer OTHER ==
[~2018-02-12] VITALS: Ht 182.9 cm; Wt 128.2 kg
[~2018-02-12 20:34] MED LIST changes: +CYCLOBENZAPRINE10 MG PO
[2018-02-12 21:24] LABS: BASOPHIL (%) 0.5 % (0-1); EOSINOPHIL (%) 2.1 % (0-5); EOSINOPHIL COUNT 0.1 K/uL (0-0.3); HEMOGLOBIN 12.6 G/DL (12.5-16.6); IMMATURE GRANULOCYTE (%) 0.3 % (0.0-0.7); LYMPHOCYTE (%) 23.3 % (15-42); LYMPHOCYTE COUNT 0.9 K/uL (1.0-2.8); MCH 31.3 PG (29.0-34.0); MCHC 33.2 G/DL (30.0-36.0); MCV 94.3 FL (86-99); MONOCYTE (%) 11.8 % (3-12); MONOCYTE COUNT 0.4 K/uL (0-0.8); NEUTROPHIL COUNT 2.3 K/uL (1.8-6.4); PLATELET COUNT 166 K/uL (156-360); RBC DIS.WIDTH-SD 48.1 % (39-53); RED BLOOD COUNT 4.03 M/uL (4.00-5.50); WHITE BLOOD COUNT 3.7 K/uL (4.1-10.2)
[2018-02-12 21:31] LABS: INTER. NORMALIZED RATIO 2.4
[2018-02-12 21:38] LABS: PTT 34.5 SEC (25-37)
[2018-02-12 21:47] LABS: TROP-I INTERPRETATION NEGATIVE; TROPONIN-I < 0.01 ng/mL (0.0-0.30)
[2018-02-12 21:54] LABS: CHLORIDE 108 mEq/L (99-109); POTASSIUM 4.2 mEq/L (3.7-5.4); SODIUM 140 mEq/L (136-147)
[2018-02-12 21:55] LABS: MAGNESIUM 2.2 mg/dL (1.3-2.7)
[2018-02-12 21:56] LABS: GLUCOSE 103 mg/dL (70-99)
[2018-02-12 22:00] LABS: CREATININE 1.2 mg/dL (0.6-1.3); GFR ESTIMATE (CALCULATED) > 59 mL/min/ (58.99-99999); UREA NITROGEN (BUN) 20 mg/dL (9-23)
[2018-02-12] MEDS ORDERED: FLEXERIL10 MG PO (23:26)
[2018-02-12] MEDS ORDERED: FLOMAX0.4 MG PO (23:26)
[2018-02-13] VITALS (7 sets, daily range): BP systolic 109–138; BP diastolic 67–85
[2018-02-13 07:02] LABS: INTER. NORMALIZED RATIO 2.2
[2018-02-13 07:19] LABS: TROP-I INTERPRETATION NEGATIVE; TROPONIN-I < 0.01 ng/mL (0.0-0.30)
[2018-02-13 07:23] LABS: HDL CHOLESTEROL 25 MG/DL (Desirable>=40); LDL CHOLESTEROL 80 mg/dL (Desirable<100); NON-HDL CHOLESTEROL 120 mg/dL (Desirable<160); TOTAL CHOLESTEROL 145 mg/dL (Desirable<200); TRIGLYCERIDES 200 MG/DL (Normal: <150)
[2018-02-13 09:18] LABS: ALBUMIN 3.7 G/DL (3.2-4.8); ALKALINE PHOSPHATASE 51 IU/L (3-129); ALT (GPT) 18 IU/L (3-49); AST (GOT) 14 IU/L (2-34); DIRECT BILIRUBIN 0.1 mg/dL (0.0-0.3); TOTAL BILIRUBIN 0.5 MG/DL (0.0-1.0); TOTAL PROTEIN 6.3 G/DL (6.4-8.3)
[2018-02-13 10:13] LABS: TROP-I INTERPRETATION NEGATIVE; TROPONIN-I < 0.01 ng/mL (0.0-0.30)
[2018-02-14 03:43] VITALS: BP 108/68
[2018-02-14 06:08] LABS: BASOPHIL (%) 0.6 % (0-1); EOSINOPHIL (%) 3.5 % (0-5); EOSINOPHIL COUNT 0.2 K/uL (0-0.3); HEMATOCRIT 39.7 % (38.0-50.0); HEMOGLOBIN 12.8 G/DL (12.5-16.6); IMMATURE GRANULOCYTE (%) 0.2 % (0.0-0.7); LYMPHOCYTE (%) 28.9 % (15-42); LYMPHOCYTE COUNT 1.3 K/uL (1.0-2.8); MCH 30.5 PG (29.0-34.0); MCHC 32.2 G/DL (30.0-36.0); MCV 94.5 FL (86-99); MONOCYTE (%) 11.7 % (3-12); MONOCYTE COUNT 0.5 K/uL (0-0.8); NEUTROPHIL (%) 55.1 % (45-76); NEUTROPHIL COUNT 2.6 K/uL (1.8-6.4); PLATELET COUNT 163 K/uL (156-360); RBC DIS.WIDTH-CV 13.8 % (11.8-14.6); RBC DIS.WIDTH-SD 47.9 % (39-53); WHITE BLOOD COUNT 4.6 K/uL (4.1-10.2)
[2018-02-14 06:25] LABS: CHLORIDE 106 MEQ/L (99-109); CREATININE 1.3 MG/DL (0.6-1.3); GFR ESTIMATE (CALCULATED) > 59 mL/min/ (58.99-99999); GLUCOSE 83 mg/dL (70-99); SODIUM 139 MEQ/L (136-147); UREA NITROGEN (BUN) 17 mg/dL (9-23)
[2018-02-14 08:30] VITALS: BP 122/76
[2018-02-14 13:42] VITALS: BP 124/76
== END 2018-02-14 18:45 | disposition home or self-care (01) ==
LOC: EME → EDBD 20:34 → EME 20:34 → EDOF 23:18 → 5WEST 23:18 → ENRESERV 23:19 → 5WEST 02-13 00:36 → ENPENDDIS 02-14 → 5WEST 02-14 18:45
PROVIDERS: Emergency Medicine; Internal Medicine; Physician Assistant Medical
DX: R07.9 Chest pain, unspecified (principal); I25.10 Atherosclerotic heart disease of native coronary artery without angina pectoris; I25.2 Old myocardial infarction; I11.0 Hypertensive heart disease with heart failure; I50.22 Chronic systolic (congestive) heart failure; Z95.810 Presence of automatic (implantable) cardiac defibrillator; E78.5 Hyperlipidemia, unspecified; E66.9 Obesity, unspecified; I25.3 Aneurysm of heart; I47.1 Supraventricular tachycardia; I47.2 Ventricular tachycardia; Z79.01 Long term (current) use of anticoagulants; R61 Generalized hyperhidrosis; I25.5 Ischemic cardiomyopathy; Z87.442 Personal history of urinary calculi; R33.9 Retention of urine, unspecified; Z87.891 Personal history of nicotine dependence; Z95.5 Presence of coronary angioplasty implant and graft; Z82.49 Family history of ischemic heart disease and other diseases of the circulatory system; Z88.0 Allergy status to penicillin; R60.0 Localized edema; Z98.890 Other specified postprocedural states; Z68.39 Body mass index [BMI] 39.0-39.9, adult; Z86.79 Personal history of other diseases of the circulatory system
CPT/HCPCS: 71045; 71100; 74176; 78227; 80048; 80061; 80076; 83735; 84484; 85025; 85610; 85730; 93005; 99281; 99285; A9537; G0378; J2805

== ENCOUNTER 2018-03-01 00:28 | Observation (INO) | payer OTHER ==
[~2018-03-01] VITALS: Ht 182.9 cm; Wt 130.0 kg
[~2018-03-01 00:28] MED LIST changes: +FLEXERIL10 MG PO
[2018-03-01 00:56] LABS: HEMATOCRIT 41.1 % (38.0-50.0); HEMOGLOBIN 13.8 G/DL (12.5-16.6); MCH 31.9 PG (29.0-34.0); MCHC 33.6 G/DL (30.0-36.0); MCV 94.9 FL (86-99); PLATELET COUNT 168 K/uL (156-360); RBC DIS.WIDTH-CV 14.1 % (11.8-14.6); RBC DIS.WIDTH-SD 49.2 % (39-53); RED BLOOD COUNT 4.33 M/uL (4.00-5.50); WHITE BLOOD COUNT 7.9 K/uL (4.1-10.2)
[2018-03-01 01:05] LABS: CHLORIDE 105 mEq/L (99-109); POTASSIUM 4.7 mEq/L (3.7-5.4); SODIUM 140 mEq/L (136-147)
[2018-03-01 01:06] LABS: INTER. NORMALIZED RATIO 2.2
[2018-03-01 01:08] LABS: GLUCOSE 136 mg/dL (70-99); TOTAL PROTEIN 7.1 g/dL (6.4-8.3)
[2018-03-01 01:09] LABS: PTT 34.6 SEC (25-37); TOTAL BILIRUBIN 0.8 mg/dL (0.0-1.0)
[2018-03-01 01:11] LABS: ALKALINE PHOSPHATASE 66 IU/L (3-129); CREATININE 1.1 mg/dL (0.6-1.3); GFR ESTIMATE (CALCULATED) > 59 mL/min/ (58.99-99999)
[2018-03-01 01:12] LABS: UREA NITROGEN (BUN) 21 mg/dL (9-23)
[2018-03-01 01:13] LABS: AST (GOT) 17 IU/L (2-34)
[2018-03-01 01:14] LABS: ALT (GPT) 29 IU/L (3-49)
[2018-03-01 01:15] LABS: LIPASE 18 U/L (1.0-51.0)
[2018-03-01 01:20] LABS: TROP-I INTERPRETATION NEGATIVE; TROPONIN-I < 0.01 ng/mL (0.0-0.30)
[2018-03-01 07:32] LABS: TROP-I INTERPRETATION NEGATIVE; TROPONIN-I < 0.01 ng/mL (0.0-0.30)
[2018-03-01] MEDS ORDERED: ENDOCET 5-3251 EACH PO (07:47)
[2018-03-01 12:28] VITALS: BP 129/72
[2018-03-01 13:19] LABS: TROP-I INTERPRETATION NEGATIVE; TROPONIN-I < 0.01 ng/mL (0.0-0.30)
[2018-03-01] MEDS ORDERED: POLYETHYLENE GL17 GM PO (14:57)
== END 2018-03-01 15:34 | disposition home or self-care (01) ==
LOC: EME → EDBD 00:28 → EDOF 02:19 → ENRESERV 02:20 → 4SOUTH 07:29
PROVIDERS: Emergency Medicine; Physician Assistant Medical
DX: R07.89 Other chest pain (principal); I25.10 Atherosclerotic heart disease of native coronary artery without angina pectoris; I11.0 Hypertensive heart disease with heart failure; I50.22 Chronic systolic (congestive) heart failure; I25.3 Aneurysm of heart; Z79.01 Long term (current) use of anticoagulants; I25.2 Old myocardial infarction; I25.5 Ischemic cardiomyopathy; I47.2 Ventricular tachycardia; Z98.890 Other specified postprocedural states; E78.5 Hyperlipidemia, unspecified; Z95.810 Presence of automatic (implantable) cardiac defibrillator; R60.0 Localized edema; E66.9 Obesity, unspecified; Z68.38 Body mass index [BMI] 38.0-38.9, adult; Z87.891 Personal history of nicotine dependence; Z82.49 Family history of ischemic heart disease and other diseases of the circulatory system; Z88.0 Allergy status to penicillin
CPT/HCPCS: 71046; 80053; 83690; 84484; 85027; 85610; 85730; 93005; 99281; 99285; G0378; J7030